=== PATIENT | male | born 1970 | race Two or more races ===

== ENCOUNTER → 2022-02-05 | Outpatient (CLI) | payer BC ==
--- NOTE | 2022-02-05 11:05 | CT ---
EXAMINATION TYPE: CT abdomen pelvis w con DATE OF EXAM: 02/05/2022 COMPARISON: None HISTORY: LLQ pain CT DLP: 1134.4 mGycm Automated exposure control for dose reduction was used. TECHNIQUE: Helical acquisition of images from the lung bases through the pelvis have been completed. CONTRAST: Performed with Oral Contrast and with IV Contrast, patient injected with 100 mL of Isovue 300. FINDINGS: Hiatal hernia is present. LUNG BASES: No significant abnormality is appreciated. AORTA: No significant abnormality is appreciated. LIVER/GB: Dependent calculi are present within the gallbladder. No evident liver mass. PANCREAS: No significant abnormality is seen. SPLEEN: No significant abnormality is seen. ADRENALS: No significant abnormality is seen. KIDNEYS: Cortical cyst is associated with the right kidney. No evident hydronephrosis. No pathologic calcification. REPRODUCTIVE ORGANS: Prostate is enlarged BOWEL: Loop of small bowel is in close proximity to a small umbilical hernia which also contains fat . The appendix is normal FREE AIR: No Free Air visible. ASCITES: None visible. PELVIC ADENOPATHY: None visualized. RETROPERITONEAL ADENOPATHY: No Retroperitoneal Adenopathy visible. URINARY BLADDER: No significant abnormality is seen. OSSEOUS STRUCTURES: No significant abnormality is seen. IMPRESSION: CHOLELITHIASIS. SMALL BOWEL LOOP EXTENDS TO THE LEVEL OF THE UMBILICAL HERNIA, NO EVIDENT BOWEL OBSTR UCTION.
== END | disposition home or self-care (01) ==
LOC: RADCTMAIN 08:15
PROVIDERS: ATTEND Family Medicine
DX: K80.20 Calculus of gallbladder without cholecystitis without obstruction (principal); K42.9 Umbilical hernia without obstruction or gangrene
CPT/HCPCS: 74177; Q9967

== ENCOUNTER → 2022-03-03 | Outpatient (CLI) | payer BC ==
--- NOTE | 2022-03-03 09:13 | NM ---
Nuclear medicine hepatobiliary scan. HISTORY: Pain. DOSAGE: The patient received 8 ounces of ensure plus and 5.1 mCi of Technetium 99m Choletec. FINDINGS: There is normal hepatic extraction. The gallbladder is seen by 10 minutes. There is bilia ry to bowel clearance by 25 minutes. Ejection fraction is 84%. IMPRESSION: 1. Normal hepatobiliary exam
== END | disposition home or self-care (01) ==
LOC: RADNMMAIN 06:39
PROVIDERS: ATTEND Family Medicine
DX: R10.9 Unspecified abdominal pain (principal)
CPT/HCPCS: 78226; A9537